=== PATIENT | male | born 2000 | race Caucasian/White ===

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

== ENCOUNTER 2024-04-14 13:26 | Outpatient (REF) | payer OTHER, SELFPAY ==
[2024-04-14 22:05] LABS: HGB 16.6 g/dL (13.5-17.5); MCH 29.2 pg (27.0-33.0); MCHC 33.2 % (32.0-36.0); MCV 88 fL (80-95); MPV 11.6 fL (8.0-11.0); Platelet Count 291 10^3/uL (130-400); RBC 5.68 10^6/uL (4.36-5.78); RDW 12.2 % (11.8-14.1); RDW-SD 39.6 fL; WBC 7.42 10^3/uL (4.4-10.8)
[2024-04-14 22:33] LABS: Hemoglobin A1C 5.3 % (<5.7)
[2024-04-14 22:36] LABS: ALT 31 U/L (16-63); AST 20 U/L (15-37); Albumin 4.4 g/dL (3.4-5.0); Alkaline Phosphatase 75 U/L (46-116); Anion Gap 10.8 mmol/L (3-11); BUN 16 mg/dL (7-18); Bilirubin, Total 0.63 mg/dL (0.2-1.0); CO2 28.2 mmol/L (21.0-32.0); CREATININE 1.1 mg/dL (0.70-1.30); Calcium 9.6 mg/dL (8.5-10.1); Calculated LDL 88 mg/dL (<100); Chloride 103 mmol/L (98-107); Cholesterol 167 mg/dL (<200); Estimated GFR 97.34 (mL/min/1.73m2); Glucose 94 mg/dL (74-106); HDL Cholesterol 50 mg/dL (40-60); Magnesium 2.3 mg/dL (1.8-2.4); Potassium 4.6 mmol/L (3.5-5.1); Sodium 142 mmol/L (136-145); TSH 2.46 uIU/Ml (0.36-3.74); Total Protein 7.6 g/dL (6.4-8.2); Triglyceride 146 mg/dL (<150)
== END 2024-04-14 13:27 | disposition home or self-care (01) ==
LOC: NCHCN 13:26
PROVIDERS: Visit Provider Nurse Practitioner Family
DX: R42 Dizziness and giddiness (principal); Z13.29 Encounter for screening for other suspected endocrine disorder; Z13.220 Encounter for screening for lipoid disorders; Z13.1 Encounter for screening for diabetes mellitus
CPT/HCPCS: 80053; 80061; 85027; 83036; 83735; 84443